=== PATIENT | male | born 1970 | race Caucasian/White ===

== ENCOUNTER 2018-02-05 11:18 | Emergency (ER) | payer OTHER ==
[~2018-02-05] VITALS: Ht 175.3 cm; Wt 72.6 kg
[~2018-02-05 11:18] MED LIST: ARIP10; ARIP10 PO; BLOOD PRESSURE MED; CEPH500 PO; CHLO25 PO; CYCL10 PO; IBUP800 PO; Keflex500 MG PO; LISI20 PO; LISI5 PO; MELO7.5 PO; OXYACE7.5T PO; SERT50; SULTRIDS PO; TRAZ50 PO
[2018-02-05] MEDS ORDERED: METPRE4DP PO (11:51)
== END 2018-02-05 11:57 | disposition home or self-care (01) ==
LOC: ER 11:18
DX: M79.89 Other specified soft tissue disorders (principal); I10 Essential (primary) hypertension; F17.210 Nicotine dependence, cigarettes, uncomplicated; Z88.8 Allergy status to other drugs, medicaments and biological substances
CPT/HCPCS: 99282

== ENCOUNTER 2019-10-03 20:28 | Emergency (ER) | payer OTHER ==
[~2019-10-03] VITALS: Ht 175.3 cm; Wt 69.0 kg
[~2019-10-03 20:28] MED LIST changes: +METPRE4DP PO
[2019-10-03 21:06] LABS: BASOPHILS ABSOLUTE AUTO 0.02 K/mm3 (0.00-0.23); BASOPHILS PERCENT AUTO 0 % (0-2); EOSINOPHILS ABSOLUTE AUTO 0.21 K/mm3 (0.00-0.68); EOSINOPHILS PERCENT AUTO 4 % (0-6); Hematocrit 44.3 % (37.0-53.0); IMMATURE GRAN ABSOLUTE AUTO 0.01 K/mm3 (0.00-0.10); IMMATURE GRAN PERCENT AUTO 0 % (0-1); LYMPHOCYTES ABSOLUTE AUTO 1.44 K/mm3 (0.84-5.20); LYMPHOCYTES PERCENT AUTO 27 % (21-46); MONOCYTES PERCENT AUTO 11 % (4-13); Mean Corpuscular HGB 33.7 pg (26.0-34.0); Mean Corpuscular HGB Conc 36.1 g/dL (31.5-36.5); Mean Corpuscular Volume 93 fL (80-100); Mean Platelet Volume 10.3 fL (9.1-12.4); NEUTROPHILS ABSOLUTE AUTO 3.01 K/mm3 (1.96-9.15); NEUTROPHILS PERCENT AUTO 57 % (41-73); Platelet Count 249 K/mm3 (150-400); RDW Standard Deviation 41.3 fL (35.1-46.3); Red Blood Cell Count 4.75 M/mm3 (4.30-5.90); White Blood Cell Count 5.29 K/mm3 (4.00-11.30)
[2019-10-03 21:26] LABS: Alanine Aminotransfer (ALT/SGP 26 U/L (12-78); Albumin, Blood 3.9 g/dL (3.4-5.0); Albumin/Globulin Ratio 1.2 (0.8-1.8); Alk Phos 88 U/L (50-136); Anion Gap 6 mmol/L (6-16); Aspartate Aminotrans (AST/SGOT 20 U/L (12-37); Bilirubin, Total 0.5 mg/dL (0.1-1.0); Blood Urea Nitrogen 21 mg/dL (8-24); Bun/Creatinine Ratio 28.8 (12.0-20.0); CO2, Blood 27 mmol/L (21-32); Calcium, Blood 8.9 mg/dL (8.5-10.1); Chloride, Blood 107 mmol/L (98-108); Creatinine, Blood 0.73 mg/dL (0.60-1.20); Globulin, Blood 3.3 g/dL (2.2-4.0); Glomerular Filtration Rate >60 (60-); Glucose, Blood 120 mg/dL (70-99); Potassium, Blood 3.4 mmol/L (3.5-5.5); Sodium, Blood 140 mmol/L (136-145); Total Protein, Blood 7.2 g/dL (6.4-8.2)
[2019-10-04] MEDS ORDERED: MECL12.5 PO (00:02)
[2019-10-04] MEDS ORDERED: ONDA4ODT MM (00:03)
== END 2019-10-04 00:20 | disposition home or self-care (01) ==
LOC: ER 20:28
PROVIDERS: Physician Assistant
DX: H81.10 Benign paroxysmal vertigo, unspecified ear (principal); F31.9 Bipolar disorder, unspecified; F20.9 Schizophrenia, unspecified; F17.210 Nicotine dependence, cigarettes, uncomplicated; Z88.8 Allergy status to other drugs, medicaments and biological substances; Z79.899 Other long term (current) drug therapy
CPT/HCPCS: 36415; 80053; 84484; 85025; 93005; 93010; 96361-59; 96374-59; 96375-59; 99284-25; A9270-GY; J1885; J2405; J7120

== ENCOUNTER → 2021-05-12 | Outpatient (CLI) | payer OTHER ==
[~2021-05-12] MED LIST changes: +MECL12.5 PO; +ONDA4ODT MM
[2021-05-14 18:24] LABS: CORONAVIRUS (COVID19) CSH-NRL Negative (Negative)
== END ==
LOC: LAB SHORT 19:13 → LAB 19:13
PROVIDERS: Physician Assistant Medical
DX: Z20.822 Contact with and (suspected) exposure to COVID-19 (principal); Z88.8 Allergy status to other drugs, medicaments and biological substances
CPT/HCPCS: U0003

== ENCOUNTER 2021-09-30 06:55 | Emergency (ER) | payer OTHER ==
[~2021-09-30] VITALS: Ht 175.3 cm; Wt 68.0 kg
[2021-09-30] MEDS ORDERED: AMOCLA875 PO (08:44)
== END 2021-09-30 09:00 | disposition home or self-care (01) ==
LOC: ER 06:55
DX: S61.552A Open bite of left wrist, initial encounter (principal); I10 Essential (primary) hypertension; K21.9 Gastro-esophageal reflux disease without esophagitis; Z79.899 Other long term (current) drug therapy; Z88.8 Allergy status to other drugs, medicaments and biological substances; F17.200 Nicotine dependence, unspecified, uncomplicated; W55.01XA Bitten by cat, initial encounter
CPT/HCPCS: 96365; 99283-25; J0295

== ENCOUNTER 2023-06-01 06:09 | Day surgery (SDC) | payer OTHER ==
[~2023-06-01] VITALS: Ht 175.3 cm; Wt 74.0 kg
[2023-06-01] VITALS (14 sets, daily range): BP systolic 137–184; BP diastolic 83–124
[~2023-06-01 06:09] MED LIST changes: +AMOCLA875 PO
--- NOTE | 2023-06-01 06:30 | NUR ---
Ambulatory in Day Surgery History, Chart, Medications and Allergies reviewed before start of procedure.Rhonchi clear with cough-pt current every day smoker. Sats 100% on RA no noted sob.Patient confirms NPO status and agrees with scheduled surgery. Patient reports completing Chlorhexadine shower X2 prior to admission to hospital.Surgical site prepped with 2% Chlorhexidine cloth wipe. Patient States Post-Procedure ride home has been arranged.
--- NOTE | 2023-06-01 10:50 | NUR ---
PT TO DAY SURGERY FROM PACU. PT AWAKE AND ALERT X3. MOVES SELF IN BED. URINAL GIVEN TO VOID. PO FLUIDS GIVEN. PT HAS 3 INCISIONS THAT ARE C/D/I AND CLOSED WITH SKIN ADHESIVE.
--- NOTE | 2023-06-01 11:06 | NUR ---
PT VOIDED 75CC. INCISIONS REMAIN C/D/I/
--- NOTE | 2023-06-01 11:10 | NUR ---
ICE PACK TO ABD. EDUCATED ON USAGE. PT EDUCATED ON HIGH BP AND ENCOURAGED TO SEEK CARE WITH PCP R/T BP, PT STATES AN UNDERSTANDING.
--- NOTE | 2023-06-01 11:27 | NUR ---
PT EDUCATED ON S/S ON WHEN TO SEEK EMERGENT CARE R/T HIGH BP
--- NOTE | 2023-06-01 11:31 | NUR ---
Patient up to Ambulate independently. Gait steady. Discharge instructions reviewed with patient. Patient verbalizes understanding. Copy given to patient to take home.
--- NOTE | 2023-06-01 11:54 | NUR ---
Patient States Post-Procedure ride home has been arranged. Discharged via wheelchair to private car for ride home.
== END 2023-06-01 11:56 | disposition home or self-care (01) ==
LOC: ORSCMMR 06:09 → ORD 07:30 → ORSCMMR 11:56
PROVIDERS: Surgery
PROC: 8E0W4CZ Robotic Assisted Procedure of Trunk Region, Percutaneous Endoscopic Approach (ICD-10-PCS; principal; 2023-06-01 07:30)
PROC: 0YUA4JZ Supplement Bilateral Inguinal Region with Synthetic Substitute, Percutaneous Endoscopic Approach (ICD-10-PCS; principal; 2023-06-01 07:30)
DX: K40.00 Bilateral inguinal hernia, with obstruction, without gangrene, not specified as recurrent (principal); I10 Essential (primary) hypertension; J44.9 Chronic obstructive pulmonary disease, unspecified; F17.210 Nicotine dependence, cigarettes, uncomplicated; K21.9 Gastro-esophageal reflux disease without esophagitis; F32.A Depression, unspecified
CPT/HCPCS: C1781; J0690; J1100; J1170; J2250; J2371; J2405; J2704; J3010; J7120